=== PATIENT | male | born 1950 | race Caucasian/White ===

== ENCOUNTER → 2023-02-21 | Day surgery (SDC) | payer MEDICARE, BC ==
[~2023-02-21] MED LIST: Iopamidol-M 200 41% 10 ML VIAL FS ONE
[2023-02-21 10:38] VITALS: BP 141/69; TEMP 98
== END ==
LOC: CSHRAD 09:19
PROVIDERS: ATTEND Anesthesiology Pain Medicine
DX: M48.062 Spinal stenosis, lumbar region with neurogenic claudication (principal)
CPT/HCPCS: 62304; 72132; Q9966